=== PATIENT | female | born 1955 | race Caucasian/White ===

== ENCOUNTER 2023-05-15 17:07 | Inpatient (IN) ==
[2023-05-15] MEDS ORDERED: Aspirin EC 325 mg TAB.EC PO SCH ×2 (20:00→21:00)
[2023-05-15] MEDS ORDERED: Aspirin EC 81 mg TAB.EC (enteric coated) PO SCH ×2 (21:00)
[2023-05-15 21:45] LABS: HDL Cholesterol 63.5 mg/dL
[2023-05-16] MEDS: Enoxaparin 40 MG/0.4 ML SYR SUBCUT SCH ×2 (00:20→20:55)
[2023-05-16] MEDS: CMCS:Solifenacin 5 mg TAB (NF) PO SCH (09:13)
[2023-05-16] MEDS: Nystatin TOP POWDER 15 GM BTL TOPICAL SCH ×2 (09:13→22:23)
[2023-05-16 11:06] LABS: ABS Eosinophils 0.1 10^3/uL (0.0-0.5); ABS Lymphocytes 1.1 10^3/uL (1.0-4.8); ABS Monocytes 0.3 10^3/uL (0.0-0.9); ABS Neutrophils 6.6 10^3/uL (1.5-7.6); ABS Nucleated RBC 0.01 10^3/ul; Eosinophil % 0.8 %; Hematocrit 45.6 % (35-45); Hemoglobin 15.2 g/dL (11.5-14.3); Lymphocyte % 13.1 %; Mean Corpuscular Hemoglobin 31.2 pg (27-33); Mean Corpuscular Hgb Conc 33.3 g/dL (31-36); Mean Corpuscular Volume 93.7 fL (80-97); Mean Platelet Volume 7.1 fL (7.5-11.2); Nucleated Red Blood Cells % 0.1 %/100WBC (0.0-0.8); Platelet Count 225 10^3/uL (150-450); Red Blood Count 4.87 10^6/uL (3.63-4.92); Red Cell Distribution Width 13.6 % (12-17)
[2023-05-16 11:27] LABS: Calcium 9.7 mg/dL (8.6-10.3); Creatinine, Serum 0.65 mg/dL (0.51-0.95); Magnesium 1.7 mg/dL (1.9-2.7); Potassium 3.9 mmol/L (3.5-5.0); eGFR CKD-EPI 95.8 (>60)
[2023-05-16] MEDS ORDERED: Magnesium Sulfate 2 gm BAG 2 GM/50 ML BAG IVPB ONE (12:02)
[2023-05-17] MEDS ORDERED: Influenza vaccine *QUAD* *2023-24* 0.5 ML SYRINGE IM ONE (09:00)
[2023-05-17] MEDS: Nystatin TOP POWDER 15 GM BTL TOPICAL SCH ×2 (10:10→22:33)
[2023-05-17] MEDS: Magnesium Chloride EC 64 mgTAB PO SCH (10:11)
[2023-05-17] MEDS: CMCS:Solifenacin 5 mg TAB (NF) PO SCH (10:12)
[2023-05-17] MEDS: Enoxaparin 40 MG/0.4 ML SYR SUBCUT SCH (22:21)
[2023-05-18] MEDS: Nystatin TOP POWDER 15 GM BTL TOPICAL SCH ×2 (09:15→21:09)
[2023-05-18] MEDS: CMCS:Solifenacin 5 mg TAB (NF) PO SCH (09:18)
[2023-05-18] MEDS: Magnesium Chloride EC 64 mgTAB PO SCH (09:19)
[2023-05-18 10:19] LABS: Hematocrit 42.8 % (35-45); Hemoglobin 14.8 g/dL (11.5-14.3); Mean Corpuscular Hemoglobin 31.2 pg (27-33); Mean Corpuscular Hgb Conc 34.5 g/dL (31-36); Mean Corpuscular Volume 90.2 fL (80-97); Mean Platelet Volume 7.1 fL (7.5-11.2); Platelet Count 245 10^3/uL (150-450); Red Blood Count 4.75 10^6/uL (3.63-4.92); Red Cell Distribution Width 13.3 % (12-17); White Blood Count 8.9 10^3/uL (3.8-11.8)
[2023-05-18 10:43] LABS: Calcium 9.9 mg/dL (8.6-10.3); Creatinine, Serum 0.71 mg/dL (0.51-0.95); Magnesium 1.7 mg/dL (1.9-2.7); Potassium 3.9 mmol/L (3.5-5.0); eGFR CKD-EPI 92.6 (>60)
[2023-05-18] MEDS ORDERED: Magnesium Sulfate 2 gm BAG 2 GM/50 ML BAG IVPB ONE (11:12)
[2023-05-18] MEDS ORDERED: Magnesium Hydroxide LIQ 30 ML UDC PO ONE (12:42)
[2023-05-18] MEDS ORDERED: Magnesium Sulfate IV 1GM/100ML 1 GM/100 ML BAG IV ONE (13:12)
[2023-05-18] MEDS: Senna TAB 8.6 mg TAB PO PRN (14:07)
[2023-05-18] MEDS: Enoxaparin 40 MG/0.4 ML SYR SUBCUT SCH (21:08)
[2023-05-19] MEDS: Polyethylene Glycol 3350 17 GM PACKET PO SCH ×2 (06:52→20:09)
[2023-05-19] MEDS ORDERED: Magnesium Sulfate 2 gm BAG 2 GM/50 ML BAG IVPB ONE (07:37)
[2023-05-19] MEDS: CMCS:Solifenacin 5 mg TAB (NF) PO SCH (10:38)
[2023-05-19] MEDS: Nystatin TOP POWDER 15 GM BTL TOPICAL SCH ×2 (10:38→20:10)
[2023-05-19] MEDS: Magnesium Chloride EC 64 mgTAB PO SCH (10:38)
[2023-05-19] MEDS: Senna TAB 8.6 mg TAB PO PRN (10:40)
[2023-05-19] MEDS: Enoxaparin 40 MG/0.4 ML SYR SUBCUT SCH (20:10)
[2023-05-20 07:10] LABS: Rapid COVID-19 Molecular Undetected (Undetected)
[2023-05-20] MEDS: Nystatin TOP POWDER 15 GM BTL TOPICAL SCH (09:04)
[2023-05-20] MEDS: CMCS:Solifenacin 5 mg TAB (NF) PO SCH (09:08)
[2023-05-20] MEDS: Magnesium Chloride EC 64 mgTAB PO SCH (09:08)
[2023-05-20] MEDS: Polyethylene Glycol 3350 17 GM PACKET PO SCH (09:08)
[2023-05-20 15:51] VITALS: BP 129/58
== END 2023-05-20 11:10 | DRG 65 ==
LOC: ED 17:07 → EDHOLD 17:07 → SUATTDRO 17:54 → MEDTELE 19:40
PROVIDERS: ADMIT Student in an Organized Health Care Education/Training Program; ATTEND Hospitalist